=== PATIENT | male | born 1960 | race Caucasian/White ===

== ENCOUNTER 2021-01-01 16:37 | Emergency (ER) | payer OTHER ==
[2021-01-01 17:14] LABS: HEMOGLOBIN 14.1 gm/dl (14.0-17.5); RED BLOOD COUNT 4.59 M/UL (4.20-5.50)
[2021-01-01 17:51] LABS: BUN/CREATININE RATIO 16 (0-10)
[2021-01-01] MEDS ORDERED: ZITHROMAX250 MG PO (19:44)
[2021-01-01] MEDS ORDERED: CEFUROXIME500 MG PO (19:44)
[2021-01-01] MEDS ORDERED: PROTONIX40 MG PO (19:44)
[2021-01-01] MEDS ORDERED: ZOFRAN4 MG PO (19:44)
== END 2021-01-01 20:30 | disposition home or self-care (01) ==
LOC: ER1 16:37
PROVIDERS: Family Medicine
DX: K29.00 Acute gastritis without bleeding (principal); J18.9 Pneumonia, unspecified organism
CPT/HCPCS: 80053; 80307; 81001; 82150; 83690; 85025; 85652; 86140; 87086; 96374; 96375; 99284; C9113; G0480; J0696; J1170; J2405; J7030; Q9967